=== PATIENT | female | born 1980 | race American Indian/Alaskan Native ===

== ENCOUNTER 2020-12-06 15:41 | Emergency (ER) | payer SELFPAY ==
[2020-12-06 16:06] VITALS: BP 168/101
[2020-12-06] MEDS ORDERED: IBUPROFEN 600 MG TAB PO ONE (16:36)
[2020-12-06] MEDS ORDERED: CYCLOBENZAPRINE 10 MG TAB PO ONE (16:36)
[2020-12-06] MEDS ORDERED: ACETAMINOPHEN 500 MG TAB PO ONE (16:36)
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
--- NOTE | 2020-12-07 10:28 | Electrocardiograph Report ---
[facility] Test Date: 2020-12-06 Test Time: 16:13:37 Pat Name: EVELIN CERNA Department: Room: Gender: F Sole Rougher: RUDDY : 1980 Requested By: RHIANNON AGUSTIN Order Number: [id number] Reading MD: Faheem Watson Measurements Intervals [place] Rate: 103 P: 55 MA: 139 QRS: 24 QRSD: 98 T: 14 QT: 374 QTc: 491 Interpretive Statements Sinus tachycardia non specific st-t No previous ECG available for comparison Electronically Signed On 12-07-2020 10:28:37 EDT by Faheem Watson
== END 2020-12-06 19:30 | disposition home or self-care (01) ==
LOC: ED 15:41
DX: S63.8X2A Sprain of other part of left wrist and hand, initial encounter (principal); M62.838 Other muscle spasm; M54.2 Cervicalgia; R07.89 Other chest pain; R51.9 Headache, unspecified; M25.511 Pain in right shoulder; I10 Essential (primary) hypertension; F41.9 Anxiety disorder, unspecified; Z88.2 Allergy status to sulfonamides; Z79.899 Other long term (current) drug therapy; V49.88XA Car occupant (driver) (passenger) injured in other specified transport accidents, initial encounter; Y93.89 Activity, other specified; Y92.488 Other paved roadways as the place of occurrence of the external cause; Y99.8 Other external cause status
CPT/HCPCS: 71046; 72125; 93005; 99284